=== PATIENT | female | born 2000 | race Caucasian/White ===

== ENCOUNTER 2025-02-28 20:58 | Emergency (ER) | payer BC ==
[~2025-02-28] VITALS: Ht 172.7 cm; Wt 54.0 kg
[2025-02-28 21:18] VITALS: TEMP 37.1; O2SAT 100
[2025-02-28 22:35] LABS: BASOPHILS % 1.2 % (0.0-2.0); EOSINOPHILS % 0.4 % (0.0-5.0); HEMATOCRIT. 27.3 % (36.0-48.0); HEMOGLOBIN. 8.3 g/dL (12.0-16.0); LYMPHOCYTES % 26.3 % (20.0-50.0); MEAN PLATELET VOLUME 7.7 fl (7.4-10.4); MONOCYTES % 7.4 % (2.0-8.0); NEUTROPHILS % 64.7 % (40.0-76.0); PLATELET 341 x1000/uL (130-400); RED BLOOD CELL COUNT 3.83 mill/uL (4.2-5.4); RED CELL DISTRIBUTION WIDTH 19.7 % (11.6-14.6)
[2025-02-28 22:48] LABS: CREATININE 0.8 mg/dL (0.6-1.0); ETHANOL BLOOD < 10 mg/dL (<10); HCG SCREEN NEGATIVE; UREA NITROGEN BLOOD 7 mg/dL (9-23)
[2025-02-28] MEDS ORDERED: LACO200T2 MT ×2 (23:04→23:19)
[2025-02-28 23:30] VITALS: BP 110/81; PULSE 71; RESP 14; O2SAT 100
== END 2025-02-28 23:35 | disposition home or self-care (01) ==
LOC: ER 20:58
DX: G40.909 Epilepsy, unspecified, not intractable, without status epilepticus (principal); E11.9 Type 2 diabetes mellitus without complications; Z88.0 Allergy status to penicillin; Z91.148 Patient's other noncompliance with medication regimen for other reason
CPT/HCPCS: 36415; 80048; 80320; 80339; 82962; 84703; 85025; 99284; G0480

== ENCOUNTER 2025-03-03 21:42 | Inpatient (IN) | payer BC ==
[~2025-03-03] VITALS: Ht 172.7 cm; Wt 65.6 kg
[~2025-03-03 21:42] MED LIST: LACO200T2 MT
[2025-03-03 21:44] VITALS: O2SAT 99
[2025-03-03] MEDS: LORAZEPAM 2MG/ML UD SYRINGE IV SCH (23:23)
[2025-03-03] MEDS: MORPHINE SULFATE 4 MG/ML INJ (FOR IV/IM USE) IV ONE (23:23)
[2025-03-04 00:29] LABS: BASOPHILS % 0.4 % (0.0-2.0); EOSINOPHILS % 1.0 % (0.0-5.0); HEMATOCRIT. 24.8 % (36.0-48.0); HEMOGLOBIN. 7.6 g/dL (12.0-16.0); LYMPHOCYTES % 28.0 % (20.0-50.0); MEAN PLATELET VOLUME 7.4 fl (7.4-10.4); MONOCYTES % 9.0 % (2.0-8.0); NEUTROPHILS % 61.6 % (40.0-76.0); PLATELET 316 x1000/uL (130-400); RED BLOOD CELL COUNT 3.52 mill/uL (4.2-5.4); RED CELL DISTRIBUTION WIDTH 19.7 % (11.6-14.6)
[2025-03-04 00:42] LABS: CREATININE 0.7 mg/dL (0.6-1.0); UREA NITROGEN BLOOD 11 mg/dL (9-23)
[2025-03-04 00:43] LABS: ETHANOL BLOOD < 10 mg/dL (<10)
[2025-03-04 00:44] LABS: ASPARTATE AMINOTRANSFERASE 12 IU/L (<34); BILIRUBIN DIRECT < 0.1 mg/dL (<=3.0); BILIRUBIN TOTAL 0.2 mg/dL (0.1-1.0); PROTEIN TOTAL 6.5 g/dL (6.0-8.3)
[2025-03-04 01:29] LABS: HCG SCREEN NEGATIVE
[2025-03-04 01:45] LABS: CLARITY URINE CLEAR (CLEAR); COLOR URINE YELLOW (YELLOW); GLUCOSE URINE NEGATIVE (NEGATIVE); KETONES URINE TRACE (NEGATIVE); LEUKOCYTE ESTERASE URINE 1+ (NEGATIVE); NITRITE URINE NEGATIVE (NEGATIVE); OCCULT BLOOD URINE NEGATIVE (NEGATIVE); PH URINE 5.5 (4.5-8.0); PROTEIN URINE NEGATIVE (NEGATIVE); SPECIFIC GRAVITY URINE 1.024 (1.005-1.030); UROBILINOGEN URINE 0.2 E.U./dL (0.2-1.0)
[2025-03-04] MEDS ORDERED: MAGNESIUM/ALUMINUM HYDROXIDE/SIMETHICONE 30ML UDC PO PRN (01:45)
[2025-03-04] MEDS ORDERED: GUAIFENESIN 200MG/10ML SUGAR FREE UDC PO PRN (01:45)
[2025-03-04] MEDS ORDERED: DOCUSATE SODIUM 100MG CAPSULE PO PRN (01:45)
[2025-03-04] MEDS ORDERED: ONDANSETRON HCL 4MG/2ML INJ IV PRN (01:45)
[2025-03-04] MEDS ORDERED: DEXTROSE 50% WATER 50ML SYRINGE IV PRN (01:45)
[2025-03-04] MEDS ORDERED: IPRATROPIUM/ALBUTEROL 0.5-3(2.5)MG/3ML NEB HHN PRN (01:45)
[2025-03-04 01:55] LABS: *AMPHETAMINES SCREEN URINE NEGATIVE (NEGATIVE); *BARBITURATES SCREEN URINE NEGATIVE (NEGATIVE); *BENZODIAZEPINES SCREEN URINE NEGATIVE (NEGATIVE); *COCAINE SCREEN URINE NEGATIVE (NEGATIVE); CANNABINOID URINE SCREEN NEGATIVE (NEGATIVE); ECSTASY MDMA SCREEN URINE NEGATIVE (NEGATIVE); METHADONE URINE SCREEN NEGATIVE (NEGATIVE); OPIATES URINE SCREEN PRESUMPTIVE POSITIVE (NEGATIVE); PHENCYCLIDINE URINE SCREEN NEGATIVE (NEGATIVE)
[2025-03-04 02:16] LABS: BACTERIA URINE 1+; RBC URINE 0-2 /hpf (0-2); SQUAMOUS EPITHELIAL CELL URINE 2+ /lpf (RARE/1+); WBC URINE 0-2 /hpf (0-2)
[2025-03-04] MEDS ORDERED: LEVETIRACETAM 1,000MG in NACL 100ML PREMIX IV ONE (02:30)
[2025-03-04] MEDS: LEVETIRACETAM 1000MG PREMIX 100 ML IV SCH ×2 (03:04→09:48)
[2025-03-04] MEDS: ACETAMINOPHEN 325MG TABLET PO PRN (03:19)
[2025-03-04 04:00] VITALS: BP 110/69; PULSE 77; RESP 17; TEMP 36.7
[2025-03-04] MEDS: BLOOD SUGAR DIAGNOSTIC STRIP TEST SCH (07:20)
[2025-03-04] MEDS: INSULIN LISPRO 100 UNITS/ML SUBCUT SCH (07:43)
[2025-03-04 08:00] VITALS: BP 112/60; PULSE 80; RESP 16; TEMP 36.2; O2SAT 98
[2025-03-04] MEDS ORDERED: LEVETIRACETAM 1,000MG in NACL 100ML PREMIX IV SCH (09:00)
[2025-03-04 09:34] VITALS: BP 106/66; PULSE 65; RESP 18; TEMP 36.5292
[2025-03-04] MEDS: FAMOTIDINE 20MG/2ML VIAL IV SCH (09:48)
[2025-03-04 12:00] VITALS: BP 118/66; PULSE 88; RESP 18; TEMP 36; O2SAT 98
[2025-03-04 16:00] VITALS: BP 116/60; PULSE 80; RESP 16; TEMP 36.1; O2SAT 99
[2025-03-04 20:00] VITALS: BP 123/83; PULSE 94; RESP 18; TEMP 36.4; O2SAT 98
[2025-03-04] MEDS: LEVETIRACETAM 500MG TABLET PO SCH (21:00)
[2025-03-04] MEDS: KETOROLAC 15MG/ML VIAL IV PRN (21:23)
[2025-03-04] MEDS: LORAZEPAM 2MG/ML UD SYRINGE IV PRN (22:26)
[2025-03-05] VITALS: BP 112/68; PULSE 68; RESP 16; TEMP 36.7; O2SAT 95
[2025-03-05 04:00] VITALS: BP 107/60; PULSE 75; RESP 18; TEMP 36.4; O2SAT 95
[2025-03-05 05:50] LABS: CREATININE 0.6 mg/dL (0.6-1.0); UREA NITROGEN BLOOD 9 mg/dL (9-23)
[2025-03-05 06:01] LABS: BASOPHILS % 0.5 % (0.0-2.0); EOSINOPHILS % 0.2 % (0.0-5.0); HEMATOCRIT. 28.8 % (36.0-48.0); HEMOGLOBIN. 8.8 g/dL (12.0-16.0); LYMPHOCYTES % 21.1 % (20.0-50.0); MEAN PLATELET VOLUME 7.9 fl (7.4-10.4); MONOCYTES % 7.8 % (2.0-8.0); NEUTROPHILS % 70.4 % (40.0-76.0); PLATELET 351 x1000/uL (130-400); RED BLOOD CELL COUNT 4.12 mill/uL (4.2-5.4); RED CELL DISTRIBUTION WIDTH 19.5 % (11.6-14.6)
[2025-03-05 06:57] LABS: ADD RBC MORPHOLOGY YES
[2025-03-05 08:00] VITALS: BP_SYST 110; BP_SYST 127; BP_DIAS 65; BP_DIAS 83; PULSE 75; PULSE 78; RESP 16; RESP 18; TEMP 36.7; O2SAT 100; O2SAT 97
[2025-03-05 14:58] LABS: PLATELET ESTIMATE NORMAL
== END 2025-03-05 10:20 | disposition left against medical advice (07) | DRG 101 ==
LOC: ER 21:42 → 6WST 03-04 00:46 → EDBEDREQDT 03-04 00:55 → EDBEDREQTM 03-04 00:55 → EDBEDREQ 03-04 00:55 → ENRESERV 03-04 01:13
PROVIDERS: ADMIT Internal Medicine; ATTEND Internal Medicine
DX: G40.109 Localization-related (focal) (partial) symptomatic epilepsy and epileptic syndromes with simple partial seizures, not intractable, without status epilepticus (principal); Z53.29 Procedure and treatment not carried out because of patient's decision for other reasons; E10.9 Type 1 diabetes mellitus without complications; D50.9 Iron deficiency anemia, unspecified; F11.10 Opioid abuse, uncomplicated; Z88.0 Allergy status to penicillin; Z79.4 Long term (current) use of insulin; S99.911A Unspecified injury of right ankle, initial encounter; X58.XXXA Exposure to other specified factors, initial encounter; Y93.89 Activity, other specified; Y92.89 Other specified places as the place of occurrence of the external cause; Y99.8 Other external cause status
CPT/HCPCS: 36415; 73600; 80048; 80076; 80305; 80320; 80339; 81003; 82550; 82962; 83735; 84443; 84703; 85025; 93005; 93970; 99291; A4606; J1308; J1885; J1953; J2060; J2270; G0480